=== PATIENT | male | born 1960 | race African-American/Black ===

== ENCOUNTER 2017-03-13 10:53 | Emergency (ER) | payer OTHER ==
[~2017-03-13] VITALS: Ht 190.5 cm; Wt 99.8 kg
[~2017-03-13 10:53] MED LIST: ACETAMINOPHEN; AMLODIPINE BESYL5 MG PO; AMOXIL250 M1 PO; ANAPROX DS550 MG PO; ASPIRIN ADULT L81 M2 PO; ATIVAN1 MG PO; ATORVASTATIN CA80 M1 PO; AUGMENTIN 875 M1 TAB PO; BP MED PO; CIPROFLOXACIN500 MG PO; CLINDAMYCIN HC300 MG PO; CLINDAMYCIN150 MG PO; D-1000 185 MG-11 TAB PO; DAYPRO600 M1 PO; DESENEX1 POW T; DIFLUCAN200 MG PO; HYDR12.5C PO; HYDROCODONE BIT1 T11 PO; K-DUR 1010 MEQ PO; KEFLEX500 MG PO; LASIX20 MG PO; LISINOPRIL10 MG PO; LISINOPRIL20 MG PO; LOPRESSOR25 MG PO; LOTRIMIN 1%15 GM PO; LOTRISONE 0.05%1 CRE T; LOTRISONE 0.05%1 CRE TP; LOTRISONE 0.05%15 GM PO; LOTRISONE 0.05%45 GM PO; LOTRISONE 0.05%45 GM T; MIRALAX POWDER17 G1 PO; MYCOLOG CREAM 115 GM T; NATURE'S BLEND F1 MG PO; NKHM; NORCO 5-325 TA1 EACH PO; Nizoral 2%15 GM PO; OXYCODONE; PERCOCET 325 MG1 TA7 PO; SEPTRA DS 800 M1 TAB PO; TRAMADOL HCL50 MG PO; ULTRAM50 MG PO; VICODIN 5/500 505 MG PO; VICODIN 500 MG-1 TAB PO; VICODIN ES 7501 TAB PO; WYMOX500 MG PO
[2017-03-13 11:15] LABS: BASO % 0.3 % (0.0-1.0); EOS # 0.1 10*3/uL (0.0-0.4); EOS % 1.6 % (1.0-4.0); HEMATOCRIT 35.4 % (42.0-52.0); HEMOGLOBIN 11.7 g/dl (14.0-18.0); LYMPH # 1.2 10*3/uL (1.3-4.4); LYMPH % 21.5 % (27.0-41.0); MEAN CELL VOLUME 84.9 fl (80.0-94.0); MEAN CORPUSCULAR HGB 28.1 pg (27.0-31.0); MEAN CORPUSCULAR HGB CONC 33.1 g/dl (33.0-37.0); MEAN PLATELET VOLUME 10.7 fl (9.6-12.3); MONO # 0.3 10*3/uL (0.1-1.0); MONO % 5.6 % (3.0-9.0); NEUT # 4.1 10*3/uL (2.3-7.9); NEUT % 70.8 % (47.0-73.0); PLATELET COUNT AUTOMATED 197 10*3/uL (130-400); RED BLOOD COUNT 4.17 10*6/uL (4.50-5.90); RED CELL DISTRI WIDTH 13.6 % (0-14.5); WHITE BLOOD COUNT 5.7 10*3/uL (4.8-10.8)
[2017-03-13 11:23] LABS: ACT PARTIAL THROMBO TIME 27.6 SECONDS (20.8-31.5)
[2017-03-13 11:31] LABS: ALBUMIN 3.9 gm/dl (3.1-4.5); ALKALINE PHOSPHATASE 86 U/L (45-117); BUN 7 mg/dl (7-24); CHLORIDE 108 mmol/L (98-107); CREATININE 1.32 mg/dL (0.70-1.30); MAGNESIUM 2.2 mg/dL (1.5-2.1); POTASSIUM 3.5 mmol/L (3.5-5.1); SGOT/AST 14 IU/L (3-35); SGPT/ALT 19 U/L (12-78); SODIUM 144 mmol/L (136-145); TOTAL PROTEIN 7.4 gm/dL (6.4-8.2)
[2017-03-13 11:37] LABS: TROPONIN I < 0.015 ng/ml (<0.045)
== END 2017-03-13 14:28 | disposition short-term general hospital (02) ==
LOC: ED 10:53
PROVIDERS: Nurse Practitioner Family
DX: I63.9 Cerebral infarction, unspecified (principal); I10 Essential (primary) hypertension; F17.210 Nicotine dependence, cigarettes, uncomplicated; M19.90 Unspecified osteoarthritis, unspecified site; F41.9 Anxiety disorder, unspecified

== ENCOUNTER 2017-11-21 13:51 | Emergency (ER) | payer OTHER ==
[~2017-11-21] VITALS: Ht 193 cm; Wt 90.7 kg
[2017-11-21] MEDS ORDERED: NYSTATIN1 EAC5 T (14:42)
[2017-11-21] MEDS ORDERED: MYCOLOG CREAM 115 GM T (14:42)
== END 2017-11-21 14:49 | disposition home or self-care (01) ==
LOC: ED 13:51
DX: L30.8 Other specified dermatitis (principal); M19.90 Unspecified osteoarthritis, unspecified site; E66.3 Overweight; I10 Essential (primary) hypertension; F17.200 Nicotine dependence, unspecified, uncomplicated; Z68.29 Body mass index [BMI] 29.0-29.9, adult; Z86.73 Personal history of transient ischemic attack (TIA), and cerebral infarction without residual deficits

== ENCOUNTER 2018-06-21 11:41 | Emergency (ER) | payer OTHER ==
[~2018-06-21] VITALS: Ht 193 cm; Wt 99.8 kg
[~2018-06-21 11:41] MED LIST changes: +NYSTATIN1 EAC5 T
[2018-06-21] MEDS ORDERED: CEPHALEXIN500 M1 PO (12:30)
[2018-06-21] MEDS ORDERED: Tobrex Ophth S2.5 ML OPH (12:30)
[2018-06-21] MEDS ORDERED: ANTIBIOTIC28.4 GM T (12:30)
== END 2018-06-21 12:37 | disposition home or self-care (01) ==
LOC: ED 11:41
DX: L24.81 Irritant contact dermatitis due to metals (principal); H10.9 Unspecified conjunctivitis; F42.4 Excoriation (skin-picking) disorder

== ENCOUNTER 2018-06-27 23:26 | Emergency (ER) | payer OTHER ==
[~2018-06-27] VITALS: Ht 193 cm; Wt 99.8 kg
[~2018-06-27 23:26] MED LIST changes: +ANTIBIOTIC28.4 GM T; +CEPHALEXIN500 M1 PO; +Tobrex Ophth S2.5 ML OPH
[2018-06-27 23:59] LABS: BASO % 0.6 % (0.0-1.0); EOS # 0.1 10*3/uL (0.0-0.4); EOS % 1.8 % (1.0-4.0); HEMATOCRIT 36.4 % (42.0-52.0); HEMOGLOBIN 12.2 g/dl (14.0-18.0); LYMPH % 30.3 % (27.0-41.0); MEAN CELL VOLUME 85.2 fl (80.0-94.0); MEAN CORPUSCULAR HGB 28.6 pg (27.0-31.0); MEAN CORPUSCULAR HGB CONC 33.5 g/dl (33.0-37.0); MEAN PLATELET VOLUME 9.8 fl (9.6-12.3); MONO # 0.5 10*3/uL (0.1-1.0); NEUT # 3.9 10*3/uL (2.3-7.9); NEUT % 59.3 % (47.0-73.0); PLATELET COUNT AUTOMATED 201 10*3/uL (130-400); RED BLOOD COUNT 4.27 10*6/uL (4.50-5.90); RED CELL DISTRI WIDTH 12.8 % (0-14.5); WHITE BLOOD COUNT 6.5 10*3/uL (4.8-10.8)
[2018-06-28 00:15] LABS: ALBUMIN 3.8 gm/dl (3.1-4.5); ALKALINE PHOSPHATASE 88 U/L (45-117); BUN 11 mg/dl (7-24); CHLORIDE 106 mmol/L (98-107); CREATININE 1.57 mg/dL (0.70-1.30); POTASSIUM 3.5 mmol/L (3.5-5.1); SGOT/AST 11 IU/L (3-35); SGPT/ALT 14 U/L (12-78); SODIUM 139 mmol/L (136-145); TOTAL PROTEIN 7.1 gm/dL (6.4-8.2)
[2018-06-28] MEDS ORDERED: BACTROBAN CREAM15 GM PO (01:26)
[2018-06-28] MEDS ORDERED: BENADRYL ALLERG25 M5 PO (01:26)
== END 2018-06-28 01:46 | disposition home or self-care (01) ==
LOC: ED 23:26
PROVIDERS: Emergency Medicine
DX: H10.9 Unspecified conjunctivitis (principal); L25.9 Unspecified contact dermatitis, unspecified cause; L01.00 Impetigo, unspecified; I10 Essential (primary) hypertension; F17.200 Nicotine dependence, unspecified, uncomplicated; Z86.73 Personal history of transient ischemic attack (TIA), and cerebral infarction without residual deficits; Z79.82 Long term (current) use of aspirin; Z79.899 Other long term (current) drug therapy

== ENCOUNTER 2018-08-28 19:27 | Emergency (ER) | payer OTHER ==
[~2018-08-28] VITALS: Wt 99.8 kg
[~2018-08-28 19:27] MED LIST changes: +BACTROBAN CREAM15 GM PO; +BENADRYL ALLERG25 M5 PO
[2018-08-28] MEDS ORDERED: PREDNISONE20 M1 PO (20:14)
[2018-08-28] MEDS ORDERED: FLONASE ALLERG9.9 ML NAS (20:14)
[2018-08-28] MEDS ORDERED: IBUPROFEN600 MG PO (20:14)
== END 2018-08-28 21:14 | disposition home or self-care (01) ==
LOC: ED 19:27
DX: M70.32 Other bursitis of elbow, left elbow (principal); L25.9 Unspecified contact dermatitis, unspecified cause; J30.9 Allergic rhinitis, unspecified; F42.4 Excoriation (skin-picking) disorder; Z87.891 Personal history of nicotine dependence; Y93.89 Activity, other specified

== ENCOUNTER 2018-10-18 08:57 | Emergency (ER) | payer SELFPAY ==
[~2018-10-18] VITALS: Ht 190.5 cm; Wt 99.8 kg
[~2018-10-18 08:57] MED LIST changes: +FLONASE ALLERG9.9 ML NAS; +IBUPROFEN600 MG PO; +PREDNISONE20 M1 PO
[2018-10-18] MEDS ORDERED: PREDNISONE20 M1 PO (09:37)
[2018-10-18] MEDS ORDERED: CEPHALEXIN500 M1 PO (09:37)
[2018-10-18] MEDS ORDERED: ANTIBIOTIC28.4 GM T (09:37)
== END 2018-10-18 09:42 | disposition home or self-care (01) ==
LOC: ED 08:57
DX: L23.0 Allergic contact dermatitis due to metals (principal); F17.200 Nicotine dependence, unspecified, uncomplicated; Z79.82 Long term (current) use of aspirin; Z79.899 Other long term (current) drug therapy

== ENCOUNTER 2020-10-24 21:55 | Emergency (ER) | payer OTHER ==
[~2020-10-24] VITALS: Ht 182.8 cm; Wt 95.3 kg
[2020-10-24 22:39] LABS: BASO % 0.7 % (0.0-1.0); EOS # 0.1 10*3/uL (0.0-0.4); EOS % 1.6 % (1.0-4.0); HEMATOCRIT 38.9 % (42.0-52.0); LYMPH # 1.4 10*3/uL (1.3-4.4); LYMPH % 30.5 % (27.0-41.0); MEAN CELL VOLUME 84.7 fl (80.0-94.0); MEAN CORPUSCULAR HGB 27.5 pg (27.0-31.0); MEAN CORPUSCULAR HGB CONC 32.4 g/dl (33.0-37.0); MEAN PLATELET VOLUME 10.1 fl (9.6-12.3); MONO # 0.4 10*3/uL (0.1-1.0); MONO % 8.6 % (3.0-9.0); NEUT # 2.6 10*3/uL (2.3-7.9); NEUT % 58.4 % (47.0-73.0); PLATELET COUNT AUTOMATED 205 10*3/uL (130-400); RED BLOOD COUNT 4.59 10*6/uL (4.50-5.90); RED CELL DISTRI WIDTH 12.6 % (0-14.5); WHITE BLOOD COUNT 4.4 10*3/uL (4.8-10.8)
[2020-10-24 22:53] LABS: ALBUMIN 3.7 gm/dl (3.1-4.5); ALKALINE PHOSPHATASE 108 U/L (45-117); BUN 7 mg/dl (7-24); CHLORIDE 108 mmol/L (98-107); CREATININE 1.31 mg/dL (0.70-1.30); LIPASE 50 U/L (73-393); POTASSIUM 3.7 mmol/L (3.5-5.1); SGOT/AST 11 IU/L (3-35); SGPT/ALT 15 U/L (12-78); SODIUM 136 mmol/L (136-145); TOTAL PROTEIN 7.5 gm/dL (6.4-8.2)
[2020-10-24] MEDS ORDERED: NYSTATIN CREAM15 GM T (22:55)
== END 2020-10-24 23:12 | disposition home or self-care (01) ==
LOC: ED 21:55
PROVIDERS: Physician Assistant
DX: R21 Rash and other nonspecific skin eruption (principal); Z79.899 Other long term (current) drug therapy